=== PATIENT | male | born 1945 | race Caucasian/White ===

== ENCOUNTER 2019-07-25 22:04 | Inpatient (IN) ==
[2019-07-28] MEDS ORDERED: EPINEPHrine 1 MG/ML VIAL IM PRN (20:20)
[2019-07-28] MEDS ORDERED: MEPOLIZUMAB 100 MG PO SCH (20:30)
[2019-07-28] MEDS ORDERED: OMALIZUMAB 150 MG VIAL SQ SCH (20:30)
[2019-07-28] MEDS ORDERED: Insulin DETEMIR 100 UNIT/ML per UNIT SQ ONE (21:00)
[2019-07-28] MEDS: *HR* HYDROcodone/Acet 5/325 mg TABLET PO PRN (21:18)
[2019-07-28] MEDS: Gabapentin 300 MG CAPSULE PO SCH (21:23)
[2019-07-28] MEDS: Famotidine 20 MG TABLET PO SCH (21:23)
[2019-07-28] MEDS ORDERED: Dextrose Gel 15 GM/37.5 ML TUBE PO PRN ×2 (21:44)
[2019-07-28] MEDS ORDERED: D5% in Water 1,000 ML IVC PRN (21:44)
[2019-07-28] MEDS ORDERED: *HR* Dextrose 50 % in Water (Syg) 50 ML SYRINGE IVP PRN (21:44)
[2019-07-28] MEDS: Albuterol 2.5 MG/3 ML NEBULIZER IH SCH (23:43)
[2019-07-29] MEDS: Albuterol 2.5 MG/3 ML NEBULIZER IH SCH ×5 (04:36→20:56)
[2019-07-29 05:33] LABS: Basophils # 0.1 K/mcL (0.0-0.2); Basophils % 0.9 %; Eosinophils # 0.1 K/mcL (0.0-0.6); Eosinophils % 0.4 %; Hematocrit 40.8 % (37.5-50.1); Hemoglobin 13.1 g/dL (12.9-16.9); Immature Granulocytes % 4.5 % (0-4); Lymphocytes # 1.3 K/mcL (0.6-4.6); Lymphocytes % 9.5 %; Mean Corpuscular HGB Conc 32.1 g/dL (31.6-35.5); Mean Corpuscular Hemoglobin 29.9 pg (28.0-33.3); Mean Corpuscular Volume 93.2 fL (83.0-100.0); Mean Platelet Volume 11.1 fL (9.4-12.4); Monocytes % 14.1 %; Platelet Count 294 K/mcL (140-400); Red Blood Count 4.38 M/mcL (4.19-5.50); Red Cell Distribution Width 16.2 % (11.5-14.5); Segmented Neutrophils % 70.6 %; White Blood Count 14.1 K/mcL (4.3-11.1)
[2019-07-29 05:53] LABS: Calcium 8.9 mg/dL (8.6-10.3); Potassium 3.4 mEq/L (3.5-5.1)
[2019-07-29 06:43] LABS: INR 2.1; Prothrombin Time 23.7 Seconds (9.4-12.1)
[2019-07-29] MEDS ORDERED: INSULIN ASPART SQ SCH (08:00)
[2019-07-29] MEDS: *HR* HYDROcodone/Acet 5/325 mg TABLET PO PRN ×2 (08:46→17:37)
[2019-07-29] MEDS: Gabapentin 300 MG CAPSULE PO SCH ×3 (08:46→21:13)
[2019-07-29] MEDS: Aspirin Enteric Coated 81 MG Tablet PO SCH (08:46)
[2019-07-29] MEDS: Insulin DETEMIR 100 UNIT/ML X5UNITS SQ SCH ×2 (08:47→21:14)
[2019-07-29] MEDS: Lisinopril 20 MG TABLET PO SCH (08:47)
[2019-07-29] MEDS: Multivit/Ca/Min/Fe/FA 1 TAB TABLET PO SCH (08:47)
[2019-07-29] MEDS: Cholecalciferol (D-3) 1,000 UNIT (25MCG) TABLET PO SCH (08:47)
[2019-07-29] MEDS: *HR* Metformin 500 MG TABLET PO SCH ×2 (08:47→17:36)
[2019-07-29] MEDS ORDERED: Furosemide 40 MG TABLET PO SCH (09:00)
[2019-07-29] MEDS ORDERED: 0.9 % Sodium Chloride 1,000 ML IVC SCH (12:00)
[2019-07-29] MEDS: Insulin LISPRO 300 UNITS/3 ML VIAL SQ SCH ×3 (12:07→21:14)
[2019-07-29] MEDS: Nystatin SUSP 5 ML UD.LIQ PO SCH ×3 (12:27→21:13)
[2019-07-29] MEDS ORDERED: *HR* Warfarin 3 MG TABLET PO SCH (18:00)
[2019-07-29] MEDS ORDERED: *HR* Warfarin 3 MG TABLET PO ONE (18:00)
[2019-07-29] MEDS ORDERED: Warfarin perPT PO PRN (18:00)
[2019-07-29] MEDS ORDERED: Furosemide 20 MG TABLET PO SCH (18:00)
[2019-07-29] MEDS ORDERED: Magnesium Oxide 400 MG TABLET PO SCH (18:00)
[2019-07-29] MEDS: Famotidine 20 MG TABLET PO SCH (21:13)
[2019-07-29] MEDS ORDERED: 0.9 % Sodium Chloride 250 ML IV ONE (22:48)
[2019-07-30] MEDS: Albuterol 2.5 MG/3 ML NEBULIZER IH SCH ×6 (01:08→22:28)
[2019-07-30] MEDS ORDERED: Albumin 25% 25gram/100mL 25 GM/100 ML IV.SOLN IVPB ONE ×2 (02:00→16:15)
[2019-07-30] MEDS: Insulin LISPRO 300 UNITS/3 ML VIAL SQ SCH ×4 (08:18→19:55)
[2019-07-30] MEDS: Nystatin SUSP 5 ML UD.LIQ PO SCH ×4 (08:18→20:32)
[2019-07-30] MEDS: Lisinopril 20 MG TABLET PO SCH (08:18)
[2019-07-30] MEDS: Multivit/Ca/Min/Fe/FA 1 TAB TABLET PO SCH (08:18)
[2019-07-30] MEDS: Cholecalciferol (D-3) 1,000 UNIT (25MCG) TABLET PO SCH (08:19)
[2019-07-30] MEDS: Gabapentin 300 MG CAPSULE PO SCH ×3 (08:19→20:32)
[2019-07-30] MEDS: Aspirin Enteric Coated 81 MG Tablet PO SCH (08:19)
[2019-07-30] MEDS: *HR* Metformin 500 MG TABLET PO SCH (08:19)
[2019-07-30 08:31] LABS: Calcium 8.5 mg/dL (8.6-10.3); Magnesium 1.8 mg/dL (1.6-2.6); Potassium 3.9 mEq/L (3.5-5.1)
[2019-07-30 08:35] LABS: Hematocrit 35.2 % (37.5-50.1); Hemoglobin 11.1 g/dL (12.9-16.9); INR 2.4; Mean Corpuscular HGB Conc 31.5 g/dL (31.6-35.5); Mean Corpuscular Hemoglobin 29.4 pg (28.0-33.3); Mean Corpuscular Volume 93.1 fL (83.0-100.0); Platelet Count 282 K/mcL (140-400); Prothrombin Time 27.5 Seconds (9.4-12.1); Red Blood Count 3.78 M/mcL (4.19-5.50); Red Cell Distribution Width 16.2 % (11.5-14.5); White Blood Count 15.9 K/mcL (4.3-11.1)
[2019-07-30] MEDS: Insulin DETEMIR 100 UNIT/ML X5UNITS SQ SCH ×2 (09:47→21:03)
[2019-07-30] MEDS: 0.9 % Sodium Chloride 1,000 ML IVC SCH (12:09)
[2019-07-30] MEDS: Ondansetron 4 MG/2 ML VIAL IVP SCH ×2 (12:09→17:41)
[2019-07-30 17:47] LABS: Calcium 8.9 mg/dL (8.6-10.3); Potassium 4.2 mEq/L (3.5-5.1)
[2019-07-30] MEDS ORDERED: *HR* Dextrose 50 % in Water (Vial) 50 ML VIAL IVP PRN (18:00)
[2019-07-30] MEDS ORDERED: *HR* Warfarin 3 MG TABLET PO ONE (18:00)
[2019-07-30] MEDS: *HR* HYDROcodone/Acet 5/325 mg TABLET PO PRN (20:32)
[2019-07-30] MEDS: Famotidine 20 MG TABLET PO SCH (20:32)
[2019-07-31] MEDS: Albuterol 2.5 MG/3 ML NEBULIZER IH SCH ×3 (00:51→08:08)
[2019-07-31] MEDS: 0.9 % Sodium Chloride 1,000 ML IVC SCH (02:55)
[2019-07-31 06:32] LABS: Hematocrit 35.4 % (37.5-50.1); Mean Corpuscular HGB Conc 31.1 g/dL (31.6-35.5); Mean Corpuscular Hemoglobin 29.3 pg (28.0-33.3); Mean Corpuscular Volume 94.4 fL (83.0-100.0); Platelet Count 283 K/mcL (140-400); Red Blood Count 3.75 M/mcL (4.19-5.50); Red Cell Distribution Width 16.5 % (11.5-14.5); White Blood Count 15.1 K/mcL (4.3-11.1)
[2019-07-31 06:39] LABS: INR 2.7; Prothrombin Time 30.8 Seconds (9.4-12.1)
[2019-07-31 06:51] LABS: Calcium 8.7 mg/dL (8.6-10.3); Potassium 4.2 mEq/L (3.5-5.1)
[2019-07-31 07:00] VITALS: BP 114/63
[2019-07-31] MEDS: Ondansetron 4 MG/2 ML VIAL IVP SCH (07:57)
[2019-07-31] MEDS: Insulin DETEMIR 100 UNIT/ML X5UNITS SQ SCH (07:57)
[2019-07-31] MEDS: Nystatin SUSP 5 ML UD.LIQ PO SCH (07:58)
[2019-07-31] MEDS: Multivit/Ca/Min/Fe/FA 1 TAB TABLET PO SCH (07:58)
[2019-07-31] MEDS: Gabapentin 300 MG CAPSULE PO SCH (07:58)
[2019-07-31] MEDS: Aspirin Enteric Coated 81 MG Tablet PO SCH (07:58)
[2019-07-31] MEDS: Cholecalciferol (D-3) 1,000 UNIT (25MCG) TABLET PO SCH (07:58)
[2019-07-31] MEDS ORDERED: *HR* Warfarin 3 MG TABLET PO SCH (18:00)
[2019-07-31] MEDS ORDERED: *HR* Warfarin 3 MG TABLET PO ONE (18:00)
== END 2019-07-31 11:16 | disposition other institution (70) | DRG 871 ==
LOC: INPPIK 07-28 19:51
PROVIDERS: ADMIT Family Medicine; ATTEND Family Medicine